=== PATIENT | male | born 1990 | race Two or more races ===

== ENCOUNTER 2017-01-07 09:15 | Emergency (ER) | payer MEDICAID ==
--- NOTE | 2017-01-07 09:42 | C.PDOC ---
History Of Present Illness The patient, a 26 y/o male, presents to the ED for evaluation of abdominal pain which began this morning. Patient also reports associated nausea and one episode of diarrhea. Since the onset of his symptoms, patient states he ate some noodles and now states he feels better. He denies fever, chills, and vomiting. Time Seen by Provider: 01/07/17 09:21 Chief Complaint (Nursing): GI Problem History Per: Patient History/Exam Limitations: no limitations Onset/Duration Of Symptoms: Hrs Current Symptoms Are (Timing): Still Present Quality Of Discomfort: "Pain" Associated Symptoms: Nausea, Diarrhea. denies: Fever, Chills, Vomiting Additional History Per: Patient Past Medical History Reviewed: Historical Data, Nursing Documentation, Vital Signs Vital Signs: Last Vital Signs Temp 97.8 F 01/07/17 09:21 Pulse 67 01/07/17 09:21 Resp 18 01/07/17 09:21 BP 130/84 01/07/17 09:21 Pulse Ox 96 01/07/17 10:33 - Medical History PMH: No Chronic Diseases Surgical History: No Surg Hx Family History: States: Unknown Family Hx - Social History Hx Tobacco Use: No Hx Alcohol Use: Yes Hx Substance Use: No - Immunization History Hx Tetanus Toxoid Vaccination: No Hx Influenza Vaccination: Yes Hx Pneumococcal Vaccination: No Review Of Systems Except As Marked, All Systems Reviewed And Found Negative. Constitutional: Negative for: Fever, Chills Gastrointestinal: Positive for: Nausea, Abdominal Pain, Diarrhea. Negative for : Vomiting Physical Exam - Physical Exam Appears: Non-toxic, No Acute Distress Skin: Normal Color, Warm, Dry Head: Atraumatic, Normacephalic Eye(s): bilateral: Normal Inspection Oral Mucosa: Moist Neck: Normal ROM, Supple Chest: Symmetrical, No Deformity, No Tenderness Cardiovascular: Rhythm Regular, No Murmur Respiratory: Normal Breath Sounds, No Rales, No Rhonchi, No Wheezing Gastrointestinal/Abdominal: Soft, No Tenderness, No Guarding, No Rebound Back: Normal Inspection, No Vertebral Tenderness, No Paraspinal Tenderness Extremity: Normal ROM, Capillary Refill (less than 2 seconds) Neurological/Psych: Oriented x3, Normal Speech Gait: Steady ED Course And Treatment O2 Sat by Pulse Oximetry: 96 (on RA) Pulse Ox Interpretation: Normal Progress Note: Pt is currently asymptomatic. Patient does not want any pain medication and requests to go home. Patient is stable for discharge and is advised to follow up with his PMD within 2-5 days for further evaluation. Reassessment Condition: Improved Disposition - Disposition Disposition: HOME/ ROUTINE Disposition Time: 09:40 Condition: STABLE Additional Instructions: Follow up with your primary medical doctor or clinic in 2-5 days for further evaluation. Take medications as prescribed. Return to the emergency department at any time if symptoms persist or worsen. Prescriptions: Bismuth Subsalicylate [Pepto Bismol] 262 mg PO QID #30 ctb Instructions: Gastroenteritis (ED) Forms: Work Excuse - Clinical Impression Clinical Impression: Abdominal pain - PA / [employer] / Resident Statement MD/DO has reviewed & agrees with the documentation as recorded. - Scribe Statement The provider has reviewed the documentation as recorded by the Scribe (Amina Lynch) All medical record entries made by the Scribe were at my direction and personally dictated by me. I have reviewed the chart and agree that the record accurately reflects my personal performance of the history, physical exam, medical decision making, and the department course for this patient. I have also personally directed, reviewed, and agree with the discharge instructions and disposition.
[2017-01-07 09:45] VITALS: BP 130/84; PULSE 67; RESP 18; TEMP 97.8; O2SAT 96; BMI 35.4
== END 2017-01-07 09:56 | disposition home or self-care (01) ==
LOC: C.ER 09:15
DX: R10.9 Unspecified abdominal pain (principal)

== ENCOUNTER 2017-08-24 07:47 | Emergency (ER) | payer MEDICAID ==
[2017-08-24 07:47] VITALS: BMI 35.4
[2017-08-24 08:00] VITALS: BP 122/80; PULSE 117; RESP 18; TEMP 97.9; O2SAT 98
[2017-08-24] MEDS ORDERED: Bacitracin 500 Units/gm Oint Foilpak UD TOP ONE (08:23)
--- NOTE | 2017-08-24 08:36 | C.PDOC ---
History Of Present Illness 27 y/o male, history of dry skin and calluses to the right hand, with c/o calluses became painful yesterday. Pt states he put apple cider vinegar on it and shaved one of the calluses off. Denies fever, active bleeding, trauma, or other associated symptoms. Time Seen by Provider: 08/24/17 07:58 Chief Complaint (Nursing): Abnormal Skin Integrity History Per: Patient History/Exam Limitations: no limitations Onset/Duration Of Symptoms: Days Current Symptoms Are (Timing): Still Present Location Of Injury: Right: Hand, Anterior: Hand Quality Of Symptoms: Painful. denies: Draining Recent travel outside of the [place]: No Past Medical History Reviewed: Historical Data, Nursing Documentation, Vital Signs Vital Signs: Last Vital Signs Temp 97.9 F 08/24/17 07:53 Pulse 117 H 08/24/17 07:53 Resp 18 08/24/17 07:53 BP 122/80 08/24/17 07:53 Pulse Ox 98 08/24/17 09:32 - Medical History PMH: No Chronic Diseases Family History: States: Unknown Family Hx - Social History Hx Tobacco Use: No Hx Alcohol Use: Yes Hx Substance Use: No - Immunization History Hx Tetanus Toxoid Vaccination: Yes Hx Influenza Vaccination: Yes Hx Pneumococcal Vaccination: No Review Of Systems Except As Marked, All Systems Reviewed And Found Negative. Constitutional: Negative for: Fever, Chills Cardiovascular: Negative for: Chest Pain Respiratory: Negative for: Cough, Shortness of Breath, Wheezing Gastrointestinal: Negative for: Nausea, Vomiting Skin: Positive for: Lesions (right palm) Physical Exam - Physical Exam Appears: Non-toxic, No Acute Distress Skin: Warm, Dry Head: Atraumatic, Normacephalic Extremity: Normal ROM, Other (moderate dry skin to right palm, callus base of right thumb. No swelling or erythema. +Mild localized tenderness. ) Neurological/Psych: Oriented x3, Normal Speech, Normal Cognition ED Course And Treatment O2 Sat by Pulse Oximetry: 98 (RA) Pulse Ox Interpretation: Normal Progress Note: Bacitracin applied to the area. On re-assessment, patient in no acute distress. Disposition - Disposition Referrals: [facility] [Outside] Disposition: HOME/ ROUTINE Disposition Time: 08:00 Condition: GOOD Additional Instructions: Make sure to moisturize your hands twice a day. Prescriptions: Glycerin/Lanolin/Mineral Oil [Eucerin Intensive Repair Crm] 113 gm TP BID #1 cream..g. 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 - Scribe Statement The provider has reviewed the documentation as recorded by the Scribe SM All medical record entries made by the Scribe were at my direction and personally dictated by me. I have reviewed the chart and agree that the record accurately reflects my personal performance of the history, physical exam, medical decision making, and the department course for this patient. I have also personally directed, reviewed, and agree with the discharge instructions and disposition.
[2017-08-24] MEDS ORDERED: Bacitracin 500 Units/gm Oint Foilpak UD ONE (08:50)
== END 2017-08-24 09:00 | disposition home or self-care (01) ==
LOC: C.ER 07:47
DX: L84 Corns and callosities (principal); L98.8 Other specified disorders of the skin and subcutaneous tissue

== ENCOUNTER 2017-12-03 14:13 | Emergency (ER) | payer SELFPAY ==
[2017-12-03 14:14] VITALS: BMI 35.4
== END 2017-12-03 15:34 | disposition left against medical advice (07) ==
LOC: C.ER 14:13
DX: Z02.89 Encounter for other administrative examinations (principal)

== ENCOUNTER 2017-12-04 07:04 | Emergency (ER) | payer OTHER ==
[2017-12-04 07:04] VITALS: BMI 35.4
[2017-12-04 07:09] VITALS: TEMP 97.5; O2SAT 99
[2017-12-04] MEDS ORDERED: Naproxen 550 mg Tab PO STA (07:39)
--- NOTE | 2017-12-04 07:55 | C.PDOC ---
History Of Present Illness 27-year-old male, presents to the emergency department with complaints of shoulder pain. Patient states he was taking out his trash five days ago, and sustained an injury to his left shoulder. Patient states he is experiencing pain when he moves his arm. He took Aspirin at home with no relief, resulting in him coming to the ED for evaluation. Denies numbness/weakness, fevers, chest pain, or any other associated symptoms. No other complaints at this time. Time Seen by Provider: 12/04/17 07:22 Chief Complaint (Nursing): Upper Extremity Problem/Injury History Per: Patient History/Exam Limitations: no limitations Onset/Duration Of Symptoms: Days Current Symptoms Are (Timing): Still Present Past Medical History Reviewed: Historical Data, Nursing Documentation, Vital Signs Vital Signs: Last Vital Signs Temp 97.5 F L 12/04/17 07:07 Pulse 63 12/04/17 08:41 Resp 17 12/04/17 08:41 BP 121/80 12/04/17 08:41 Pulse Ox 99 12/04/17 08:41 Family History: States: No Known Family Hx - Social History Hx Tobacco Use: No Hx Alcohol Use: Yes Hx Substance Use: No - Immunization History Hx Tetanus Toxoid Vaccination: Yes Hx Influenza Vaccination: Yes Hx Pneumococcal Vaccination: No Review Of Systems Constitutional: Negative for: Fever Cardiovascular: Negative for: Chest Pain Musculoskeletal: Positive for: Shoulder Pain (left) Skin: Negative for: Rash Neurological: Negative for: Weakness, Numbness Physical Exam - Physical Exam Appears: Well, Non-toxic, No Acute Distress Skin: Warm, Dry, No Rash Cardiovascular: Rhythm Regular, No Murmur Respiratory: Normal Breath Sounds, No Accessory Muscle Use Extremity: Tenderness, Capillary Refill (<2 seconds), No Deformity, No Swelling , Other (tenderness to palption of superior aspect and posterior shoulder. Reproducible pain on AB duction.) Neurological/Psych: Oriented x3, Normal Speech ED Course And Treatment O2 Sat by Pulse Oximetry: 99 (RA) Pulse Ox Interpretation: Normal Progress Note: XR L Shoulder ordered and reviewed. Patient treated with PO Naproxen for pain. On re-evaluation, Patient is resting comfortably, and is in no acute distress. Pain has improved. Patient was instructed to follow up with * physician/clinic* in 1-2 days for further evaluation. Disposition Counseled Patient/Family Regarding: Studies Performed, Diagnosis, Need For Followup, Rx Given - Disposition Referrals: Jose Luis Garcia III, MD [Staff Provider] - [facility] [Outside] Disposition: HOME/ ROUTINE Disposition Time: 08:00 Condition: STABLE Additional Instructions: FOLLOW UP WITH ORTHOPEDICS WITHIN 1 WEEK USE MEDICATION NEEDED RETURN TO ER IF SYMPTOMS WORSEN Prescriptions: Naproxen 375 mg PO BID PRN #20 tablet PRN Reason: pain Instructions: Shoulder Sprain (DC) Forms: [employer] (Vincentian), Work Excuse Print Language: MONGOLIAN - POA Present On Arrival: None - Clinical Impression Clinical Impression: Sprain of left shoulder - Scribe Statement The provider has reviewed the documentation as recorded by the Scribe (Mily Diaz) All medical record entries made by the Scribe were at my direction and personally dictated by me. I have reviewed the chart and agree that the record accurately reflects my personal performance of the history, physical exam, medical decision making, and the department course for this patient. I have also personally directed, reviewed, and agree with the discharge instructions and disposition.
[2017-12-04] MEDS ORDERED: Naproxen 550 mg Tab PO ONE (07:57)
[2017-12-04 08:42] VITALS: BP 121/80; PULSE 63; RESP 17
--- NOTE | 2017-12-04 12:14 | RAD ---
PROCEDURE: Radiographs of the Left Shoulder HISTORY: LEFT SHOULDER PAIN COMPARISON: No prior. FINDINGS: BONES: Normal. No fracture. JOINTS: Normal. Glenohumeral and acromioclavicular joints preserved. No osteoarthritis. SOFT TISSUES: Normal. OTHER FINDINGS: None. IMPRESSION: Normal radiographs of the left shoulder.
== END 2017-12-04 08:42 | disposition home or self-care (01) ==
LOC: C.ER 07:04
DX: S43.402A Unspecified sprain of left shoulder joint, initial encounter (principal); X58.XXXA Exposure to other specified factors, initial encounter

== ENCOUNTER 2018-10-23 09:15 | Emergency (ER) | payer OTHER ==
[2018-10-23 09:34] VITALS: BMI 32.3
[2018-10-23 09:38] VITALS: BP 124/80; PULSE 62; RESP 18; TEMP 98.2; O2SAT 99
--- NOTE | 2018-10-23 10:26 | C.PDOC ---
History Of Present Illness Pt c/o right shoulder pain. Denies specific recent injury. Time Seen by Provider: 10/23/18 09:47 Chief Complaint (Nursing): Upper Extremity Problem/Injury History Per: Patient Onset/Duration Of Symptoms: Days (chronic), Waxing/Waning Current Symptoms Are (Timing): Still Present Severity: Moderate Exacerbating Factor(s): Strenuous Use Of Affected Area Additional History Per: Prior Records Past Medical History Reviewed: Historical Data, Nursing Documentation, Vital Signs Vital Signs: Last Vital Signs Temp 98.2 F 10/23/18 09:34 Pulse 62 10/23/18 09:34 Resp 18 10/23/18 09:34 BP 124/80 10/23/18 09:34 Pulse Ox 99 10/23/18 09:34 - Medical History PMH: No Chronic Diseases Family History: States: Unknown Family Hx - Social History Hx Tobacco Use: No Hx Alcohol Use: Yes Hx Substance Use: No - Immunization History Hx Tetanus Toxoid Vaccination: Yes Hx Influenza Vaccination: Yes Hx Pneumococcal Vaccination: No Review Of Systems Except As Marked, All Systems Reviewed And Found Negative. Constitutional: Negative for: Fever Cardiovascular: Negative for: Chest Pain Respiratory: Negative for: Shortness of Breath Gastrointestinal: Negative for: Abdominal Pain Musculoskeletal: Positive for: Shoulder Pain (right). Negative for: Neck Pain, Back Pain, Hand Pain Skin: Negative for: Rash Neurological: Negative for: Weakness, Numbness Physical Exam - Physical Exam Appears: Non-toxic, No Acute Distress Skin: Normal Color, Warm, Dry, No Rash Head: Atraumatic, Normacephalic Neck: Normal ROM, No Midline Cervical Tenderness, No Paracervical Tenderness, No Step Off Deformity, Supple Chest: Symmetrical Extremity: Normal ROM, No Tenderness, Capillary Refill (wnl), No Deformity, No Swelling, Other (Pain on ROM of right shoulder) Extremity: Bilateral: Normal Color And Temperature Pulses: Right Radial: Normal Neurological/Psych: Oriented x3, Normal Motor, Normal Sensation ED Course And Treatment O2 Sat by Pulse Oximetry: 99 Pulse Ox Interpretation: Normal Disposition Counseled Patient/Family Regarding: Diagnosis, Need For Followup, Rx Given - Disposition Referrals: Leela Diaz MD [Staff Provider] - Disposition: HOME/ ROUTINE Disposition Time: 10:26 Condition: STABLE Additional Instructions: Follow up with an behavioral specialist for further evaluation and treatment. Return to the ER if you develop worsening of symptoms or have any other concerns. Prescriptions: Naproxen [Naprosyn] 1 tab PO BID PRN #25 tab PRN Reason: Pain Instructions: Shoulder Pain (DC) Forms: [facility] (Prydeinig), Work Excuse - Clinical Impression Clinical Impression: Right shoulder pain
== END 2018-10-23 10:32 | disposition home or self-care (01) ==
LOC: C.ER 09:15
DX: M25.511 Pain in right shoulder (principal)

== ENCOUNTER 2019-01-20 08:18 | Emergency (ER) | payer OTHER ==
[2019-01-20 08:23] VITALS: BMI 37.5
[2019-01-20 08:25] VITALS: TEMP 98.5
[2019-01-20] MEDS ORDERED: Amoxicillin-Clav 875-125 mg Tab PO STA (08:56)
--- NOTE | 2019-01-20 09:04 | C.PDOC ---
History Of Present Illness NEW ONSET R 5 FINGER SWELL, PAIN SINCE YEST. 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 USES GLOVES. +SWELL, UNABLE TO FULL FLEX FINGER. NO FEVER, TRAUMA. DENIES HO DM. DENIES RECENT LACERATION OR OPEN WOUND TO FINGER. EXAM NONTOXIC EXT R HAND SWELLING MILD R 5 FINGER WORSE OVER PIP. LIMITED FULL FLEX DUE TO SWELL. +CALLUS @ PIP FOLD W MIN LOCAL TEND, LOCAL SWELL. NO HAND SWELL, TEND. NO DISTAL FINGER SWELL, TEND. SKIN +R 5 FINGER +CALLUS @ PIP FOLD, INTACT. ?LOCAL ERYTHEMA NEURO INTACT Time Seen by Provider: 01/20/19 08:38 Chief Complaint (Nursing): Upper Extremity Problem/Injury History Per: Patient History/Exam Limitations: no limitations Onset/Duration Of Symptoms: Days Current Symptoms Are (Timing): Still Present Severity: Moderate Past Medical History Reviewed: Historical Data, Nursing Documentation, Vital Signs Vital Signs: Last Vital Signs Temp 98.5 F 01/20/19 08:23 Pulse 61 01/20/19 08:23 Resp 18 01/20/19 08:23 BP 134/81 01/20/19 08:23 Pulse Ox 98 01/20/19 08:23 - Medical History PMH: No Chronic Diseases Other Surgeries: Hx of surgeries Family History: States: No Known Family Hx - Social History Hx Tobacco Use: No Hx Alcohol Use: Yes Hx Substance Use: No - Immunization History Hx Tetanus Toxoid Vaccination: (unk) Hx Influenza Vaccination: No Hx Pneumococcal Vaccination: No Review Of Systems Except As Marked, All Systems Reviewed And Found Negative. Constitutional: Negative for: Fever, Chills Musculoskeletal: Positive for: Hand Pain Physical Exam - Physical Exam Appears: Non-toxic Skin: Normal Color, Warm, Dry, Other (callus at PIP fold of right 5th finger, intact, ? local erythema) Head: Atraumatic, Normacephalic Eye(s): bilateral: Normal Inspection Chest: Symmetrical Cardiovascular: Rhythm Regular Respiratory: Normal Breath Sounds, No Rales, No Rhonchi, No Wheezing Gastrointestinal/Abdominal: Normal Exam, Soft, No Tenderness Extremity: No Normal ROM (limited full flexion in right 5th finger due to swelling), Swelling (mild swelling to right 5th finger worse over PIP), Other (callus at PIP of right 5th finger with minimal local tenderness and local swelling) Neurological/Psych: Oriented x3, Normal Speech ED Course And Treatment O2 Sat by Pulse Oximetry: 98 Progress - Re-Evaluation Re-evaluation Note: 01/20/19 09:04 D/W DR YU AWARE OF ER FINDINGS. ADVISES MED ADMISSION, ID CONSULT, WILL CONSULT 01/20/19 09:15 PT ADVISED OF HAND SURG RECOMMENDATION. DOES NOT WANT ADMISSION AT THIS TIME, CONSENTS TO WAIT FOR RESIDENT EVAL. 01/20/19 12:52 SP SURG EVAL CLEARED FOR DC, ABX FU OUTPT Medical Decision Making Medical Decision Making: Plan: --Motrin PO --Augmentin PO Disposition Counseled Patient/Family Regarding: Diagnosis, Need For Followup, Rx Given - Disposition Referrals: Wale Yu MD [Staff Provider] - [facility] [Provider Group] Disposition: HOME/ ROUTINE Disposition Time: 12:53 Condition: IMPROVED Prescriptions: Amoxicillin/Clavulanate [Augmentin 875 MG-125 MG] 1 tab PO BID #14 tab Instructions: Cellulitis (Skin Infection), Adult (DC) Forms: [employer] (Belarusian), Work Excuse - Clinical Impression Clinical Impression: Finger swelling, Skin callus - Scribe Statement The provider has reviewed the documentation as recorded by the Usman Martino Provider Attestation: All medical record entries made by the Tatianaibalexander were at my direction and personally dictated by me. I have reviewed the chart and agree that the record accurately reflects my personal performance of the history, physical exam, medical decision making, and the department course for this patient. I have also personally directed, reviewed, and agree with the discharge instructions and disposition.
[2019-01-20] MEDS ORDERED: Amoxicillin-Clav 875-125 mg Tab PO ONE (09:08)
[2019-01-20 12:21] VITALS: BP 127/90; PULSE 59; RESP 16
[2019-01-20 12:59] VITALS: O2SAT 98
--- NOTE | 2019-01-20 22:00 | CP.PCM.CON ---
History of Present Illness - History of Present Illness History of Present Illness: Hand Surgery Consult Note- Dr. 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 Right hand difficult to close however after ibuprofen pain and swelling decreased. Admits to biting skin and hands. No breaks in skin, drainage from hand. Denies Associated fevers During encounter minimal point tenderness over the base of the fifth digit of the volar aspect. PMH: denies PSH: Right leg athroscopy s/p trauma ALL: Seafood SocialHx: Denies tobacco, etoh, recreational drug use Review of Systems - Review of Systems All systems: reviewed and no additional remarkable complaints except - Constitutional Constitutional: As Per HPI Past Patient History - Infectious Disease Hx of Infectious Diseases: None - Past Social History Smoking Status: Former Smoker - PSYCHIATRIC Hx Substance Use: No - SURGICAL HISTORY Hx Surgeries: Yes Hx Orthopedic Surgery: Yes (right leg) - ANESTHESIA Hx Anesthesia: Yes Hx Anesthesia Reactions: No Meds Home Medications: Home Medication List Medication Instructions Recorded Confirmed Type Amoxicillin/Clavulanate [Augmentin 1 tab PO BID #14 tab 01/20/19 Rx 875 MG-125 MG] Allergies/Adverse Reactions: Allergies Allergy/AdvReac Type Severity Reaction Status Date / Time seafood Allergy Mild SWELLING Uncoded 01/20/19 08:22 Physical Exam - Constitutional Appears: Non-toxic, No Acute Distress - Head Exam Head Exam: ATRAUMATIC - Eye Exam Eye Exam: EOMI. absent: Scleral icterus - ENT Exam ENT Exam: Mucous Membranes Moist - Respiratory Exam Respiratory Exam: NORMAL BREATHING PATTERN. absent: Accessory Muscle Use, Respiratory Distress - Cardiovascular Exam Cardiovascular Exam: REGULAR RHYTHM. absent: Bradycardia, Tachycardia - GI/Abdominal Exam GI & Abdominal Exam: Soft. absent: Distended, Firm, Guarding, Hernia, Tenderness - Extremities Exam Additional comments: multiple calluses on hand Right hand base of pinky volar aspect mobile mass, resembling cyst. no mabel ration or areas of fluctuance. Bedside US revealing no pockets of fluid or drainable abscess - Neurological Exam Neurological exam: Alert, Oriented x3 - Psychiatric Exam Psychiatric exam: Normal Affect - Skin Skin Exam: Intact, Warm Results - Vital Signs Recent Vital Signs: Last Vital Signs Temp 98.5 F 01/20/19 08:23 Pulse 59 L 01/20/19 12:21 Resp 16 01/20/19 12:21 BP 127/90 01/20/19 12:21 Pulse Ox 98 01/20/19 18:37 Assessment & Plan - Assessment and Plan (Free Text) Assessment: 28M w/ Right hand mass ? abscess Plan: No acute signs of abscess recommend anti-inflammatory follow up in hand clinic No acute surgical intervention indicated at this time further Recs per Dr. London Hand Surgery Attending PGY2
== END 2019-01-20 13:07 | disposition home or self-care (01) ==
LOC: C.ER 08:18
DX: L84 Corns and callosities (principal); M79.89 Other specified soft tissue disorders; Z87.891 Personal history of nicotine dependence

== ENCOUNTER 2019-03-05 07:21 | Emergency (ER) | payer SELFPAY ==
[2019-03-05 07:21] VITALS: BMI 37.5
[2019-03-05 07:29] VITALS: PULSE 83; RESP 18
--- NOTE | 2019-03-05 08:10 | C.PDOC ---
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 Patient reports that he feels overwhelmed at work.He is anxious because there is so much work to do.He became shaky and started sweating so he decided to come to the ER. Denies having suicidal ideation, homicidal ideation, fever,chills, headache,dizziness,CP,SOB, nausea, and vomiting. Time Seen by Provider: 03/05/19 07:30 Chief Complaint (Nursing): Anxiety History Per: Patient History/Exam Limitations: no limitations Onset/Duration Of Symptoms: Mins Current Symptoms Are (Timing): Still Present Severity: Moderate Associated Symptoms: Anxiety Past Medical History Reviewed: Historical Data, Nursing Documentation, Vital Signs Vital Signs: Last Vital Signs Temp 99.1 F 03/05/19 07:23 Pulse 83 03/05/19 07:23 Resp 18 03/05/19 07:23 BP 158/93 H 03/05/19 07:23 Pulse Ox 97 03/05/19 07:23 Primary Care Provider: FAMILY PROVIDER,NO - Medical History PMH: No Chronic Diseases Surgical History: No Surg Hx Other Surgeries: Hx of surgeries Family History: States: No Known Family Hx - Social History Hx Tobacco Use: No Hx Alcohol Use: Yes Hx Substance Use: No - Immunization History Hx Tetanus Toxoid Vaccination: (unk) Hx Influenza Vaccination: No Hx Pneumococcal Vaccination: No Review Of Systems Except As Marked, All Systems Reviewed And Found Negative. Constitutional: Negative for: Fever, Chills Cardiovascular: Negative for: Chest Pain Respiratory: Negative for: Shortness of Breath Gastrointestinal: Negative for: Nausea, Vomiting, Abdominal Pain Neurological: Negative for: Headache, Dizziness Psych: Positive for: Anxiety. Negative for: Suicidal ideation Physical Exam - Physical Exam Appears: Non-toxic, No Acute Distress Skin: Normal Color, Warm, Dry Head: Atraumatic, Normacephalic Eye(s): bilateral: Normal Inspection Nose: Normal Oral Mucosa: Moist Neck: Normal ROM, Supple Chest: Symmetrical Cardiovascular: Rhythm Regular Respiratory: Normal Breath Sounds, No Rales, No Rhonchi, No Wheezing Extremity: Normal ROM Neurological/Psych: Oriented x3, Normal Speech Gait: Steady ED Course And Treatment O2 Sat by Pulse Oximetry: 97 (RA) Pulse Ox Interpretation: Normal Progress Note: Patient is not interested in having CRISIS evaluation.Patient has been discharged and instructed to follow up with PMD. Reassessment Condition: Improved Medical Decision Making Medical Decision Making: Patient advised to follow up with clinc Disposition Counseled Patient/Family Regarding: Need For Followup - Disposition Referrals: [facility] [Outside] [facility] [Outside] [facility] [Outside] Disposition: HOME/ ROUTINE Disposition Time: 08:10 Condition: STABLE Additional Instructions: Follow up with clinic or PMD for further evaluation Return to ED if any increase symptoms Instructions: Generalized Anxiety Disorder Forms: Work/School/Gym Excuse, [facility] (Czech) - POA Present On Arrival: None - Clinical Impression Clinical Impression: Anxiety - 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 - Scribe Statement The provider has reviewed the documentation as recorded by the Tatianaibe Sofia Martino Provider Attestation All medical record entries made by the Scribe were at my direction and personally dictated by me. I have reviewed the chart and agree that the record accurately reflects my personal performance of the history, physical exam, medical decision making, and the department course for this patient. I have also personally directed, reviewed, and agree with the discharge instructions and disposition.
[2019-03-05 08:28] VITALS: BP 133/90; TEMP 98
[2019-03-05 10:19] VITALS: O2SAT 97
== END 2019-03-05 08:28 | disposition home or self-care (01) ==
LOC: C.ER 07:21
DX: F41.9 Anxiety disorder, unspecified (principal)